=== PATIENT | male | born 1965 | race American Indian/Alaskan Native ===

== ENCOUNTER 2017-09-03 01:09 | Emergency (ER) | payer SELFPAY ==
[2017-09-03 01:20] VITALS: BP 124/84
--- NOTE | 2017-09-03 03:14 | XRay Report ---
FINAL REPORT EXAM: XR TIBIA FIBULA 2V LT HISTORY: Left leg pain and swelling post fall TECHNIQUE: Four views of the left tibia-fibula were obtained. FINDINGS: There is no evidence of fracture or dislocation. The knee appears well maintained. The ankle mortise appears intact. There are small spurs along the posterior and inferior margin calcaneus. The soft tissues are unremarkable. IMPRESSION: No evidence of fracture or dislocation. Small calcaneal spurs.
--- NOTE | 2017-09-03 03:14 | XRay Report ---
FINAL REPORT EXAM: XR FOOT 2V LT HISTORY: Left foot pain and swelling post fall TECHNIQUE: AP and lateral views of the left foot were submitted. FINDINGS: There is no evidence acute fracture or soft tissue injury. Are small spurs along the posterior and plantar margin of the calcaneus. IMPRESSION: Small calcaneal spurs. No acute fracture identified.
== END 2017-09-03 08:01 | disposition left against medical advice (07) ==
LOC: ED 01:09
DX: M79.89 Other specified soft tissue disorders (principal); Z53.21 Procedure and treatment not carried out due to patient leaving prior to being seen by health care provider